=== PATIENT | male | born 1960 | race Caucasian/White ===

== ENCOUNTER 2016-09-21 22:51 | Emergency (ER) | payer OTHER | END 2016-09-21 23:46 | disposition home or self-care (01) | LOC: FER 22:51 | DX: G89.18 Other acute postprocedural pain (principal); R10.31 Right lower quadrant pain; E11.9 Type 2 diabetes mellitus without complications; Z79.84 Long term (current) use of oral hypoglycemic drugs; Z98.890 Other specified postprocedural states | CPT/HCPCS: 99283 ==

== ENCOUNTER 2020-05-02 00:34 | Emergency (ER) | payer OTHER ==
[~2020-05-02 00:34] MED LIST: BACTRIM DS TAB1 EACH PO; MIRALAX 238GM238 GM PO; NORCO 5-325 TA1 EACH PO; NORCO 7.5-3251 EACH PO
[2020-05-02 01:17] LABS: BASOPHIL 0.3 % (0-2); EOSINOPHIL 0.8 % (0-5); HCT 42.9 % (42.0-52.0); HGB 13.8 g/dl (13.2-18.0); LYMPHOCYTE 15.9 % (15-48); MCH 28.7 pg (25.0-31.0); MCHC 32.2 g/dL (32.0-36.0); MCV 89.2 fL (78.0-100.0); MONOCYTE 6.9 % (0-12); MPV 10.2 fL (6.0-9.5); NEUTROPHIL 75.7 % (41-80); NRBC 0; PLT 259 K/uL (150-400); RBC 4.81 M/uL (4.70-6.00); RDW 13.3 % (11.5-14.0)
[2020-05-02 01:36] LABS: LACTIC ACID 1.5 mmol/L (0.4-1.9)
[2020-05-02 01:45] LABS: ALBUMIN 3.6 g/dL (3.4-5.0); BILIRUBIN - TOTAL 0.2 mg/dL (0.2-1.0); BUN/CREAT RATIO (CALC) 21.3 RATIO; CREATININE 1.08 mg/dL (0.67-1.17); GLOBULIN (CALCULATION) 3.6 g/dL; POTASSIUM 4.8 mmol/L (3.5-5.1); TOTAL PROTEIN 7.2 g/dL (6.4-8.2)
[2020-05-02 04:09] LABS: BILIRUBIN NEGATIVE (NEGATIVE); BLOOD NEGATIVE Ery/uL (NEGATIVE); CLARITY CLEAR (CLEAR); COLOR YELLOW (YELLOW); GLUCOSE (U) NORMAL (NORMAL); LEUKOCYTES NEGATIVE Leu/uL (NEGATIVE); NITRITE NEGATIVE (NEGATIVE); PROTEIN NEGATIVE (NEGATIVE); UROBILINOGEN 0.2 mg/dL (0.2-1.0); pH 6.5 (5.0-9.0)
[2020-05-02] MEDS ORDERED: BENTYL10 MG PO (04:34)
[2020-05-02] MEDS ORDERED: PERCOCET 5-3251 EACH PO (04:34)
[2020-05-02] MEDS ORDERED: ONDANSETRON ODT4 MG SL (04:34)
== END 2020-05-02 04:52 | disposition home or self-care (01) ==
LOC: FER 00:34
PROVIDERS: Emergency Medicine Emergency Medical Services
DX: R10.10 Upper abdominal pain, unspecified (principal); M54.9 Dorsalgia, unspecified; K82.8 Other specified diseases of gallbladder; R00.0 Tachycardia, unspecified; R06.02 Shortness of breath; E11.9 Type 2 diabetes mellitus without complications; Z79.4 Long term (current) use of insulin; Z88.0 Allergy status to penicillin; Z20.822 Contact with and (suspected) exposure to COVID-19
CPT/HCPCS: 36415; 71045; 80053; 81003; 82728; 83605; 83615; 83690; 84145; 84484; 85025; 85379; 93005; J2270; J2405; Q9967; U0002

== ENCOUNTER 2021-05-26 17:28 | Emergency (ER) | payer OTHER ==
[~2021-05-26 17:28] MED LIST changes: +BENTYL10 MG PO; +ONDANSETRON ODT4 MG SL; +PERCOCET 5-3251 EACH PO
[2021-05-26 18:51] LABS: BASOPHIL 0.5 % (0-2); EOSINOPHIL 1.6 % (0-5); HCT 41.9 % (42.0-52.0); HGB 13.7 g/dl (13.2-18.0); LYMPHOCYTE 23.2 % (15-48); MCHC 32.7 g/dL (32.0-36.0); MCV 85.5 fL (78.0-100.0); MONOCYTE 10.5 % (0-12); MPV 9.4 fL (6.0-9.5); NEUTROPHIL 63.1 % (41-80); NRBC 0; PLT 367 K/uL (150-400); RDW 13.6 % (11.5-14.0); WBC 6.2 K/uL (4.0-10.5)
[2021-05-26 18:55] LABS: INR 0.99 (0.9-1.2); PROTHROMBIN TIME 12.5 SECONDS (11.8-13.4); PTT 33.3 SECONDS (24.4-34.7)
[2021-05-26 19:41] LABS: BILIRUBIN NEGATIVE (NEGATIVE); BLOOD NEGATIVE Ery/uL (NEGATIVE); CLARITY CLEAR (CLEAR); COLOR YELLOW (YELLOW); GLUCOSE (U) NORMAL (NORMAL); LEUKOCYTES NEGATIVE Leu/uL (NEGATIVE); NITRITE NEGATIVE (NEGATIVE); PROTEIN NEGATIVE (NEGATIVE); SPECIFIC GRAVITY >=1.030 (1.001-1.030)
[2021-05-26 19:44] LABS: BILIRUBIN - TOTAL 0.3 mg/dL (0.2-1.0); BUN/CREAT RATIO (CALC) 18.3 RATIO; C-REACTIVE PROTEIN 5.5 mg/dL (<=0.90); CREATININE 0.82 mg/dL (0.67-1.17); GLOBULIN (CALCULATION) 4.6 g/dL; MAGNESIUM 1.8 mg/dL (1.8-2.4); POTASSIUM 4.1 mmol/L (3.5-5.1); TOTAL PROTEIN 7.6 g/dL (6.4-8.2)
== END 2021-05-26 22:01 | disposition home or self-care (01) ==
LOC: FER 17:28
PROVIDERS: Emergency Medicine
DX: U07.1 COVID-19 (principal); E86.0 Dehydration; E11.9 Type 2 diabetes mellitus without complications
CPT/HCPCS: 36415; 70450; 71250; 80053; 81003; 82728; 83605; 83615; 83735; 83880; 84145; 84484; 85025; 85610; 85730; 86140; 93005